=== PATIENT | female | born 1970 | race Caucasian/White ===

== ENCOUNTER 2020-06-08 13:00 | Emergency (ER) | payer OTHER ==
--- NOTE | 2020-06-08 13:53 | RAD ---
Left ankle 3 views: HISTORY: Left ankle pain COMPARISON: 12/24/2012 FINDINGS: There are healed fractures of the distal tibia and fibula. Soft tissue swelling is present. The ankle mortise is maintained. No acute fracture or dislocation is identified.
--- NOTE | 2020-06-08 14:37 | RAD ---
LEFT FOOT THREE VIEWS: 06/08/20 HISTORY: Left foot pain. FINDINGS/IMPRESSION: The bones are osteopenic. There are old healed fractures of the distal tibia and fibula. No acute fra cture or dislocation identified. POS: OFF
== END 2020-06-08 14:37 | disposition home or self-care (01) ==
LOC: MADERS 13:00
DX: S93.402A Sprain of unspecified ligament of left ankle, initial encounter (principal); I10 Essential (primary) hypertension; Z79.899 Other long term (current) drug therapy; W17.2XXA Fall into hole, initial encounter